=== PATIENT | female | born 1995 | race Caucasian/White ===

== ENCOUNTER 2018-05-11 09:39 | Emergency (ER) | payer OTHER ==
[~2018-05-11] VITALS: Ht 152.4 cm; Wt 68.5 kg
[2018-05-11 09:50] VITALS: BP 122/57; Ht 152.4 cm; Wt 68.5 kg
== END 2018-05-11 12:22 | disposition home or self-care (01) ==
LOC: ED 09:39
DX: J40 Bronchitis, not specified as acute or chronic (principal)
CPT/HCPCS: Q0092

== ENCOUNTER 2018-07-03 15:37 | Emergency (ER) | payer OTHER ==
[~2018-07-03] VITALS: Ht 142.2 cm; Wt 68.0 kg
[2018-07-03 17:12] VITALS: Ht 142.2 cm; Wt 68.0 kg
[2018-07-03 18:56] VITALS: BP 115/80
== END 2018-07-03 19:56 | disposition home or self-care (01) ==
LOC: ED 15:37
DX: J06.9 Acute upper respiratory infection, unspecified (principal); Q90.9 Down syndrome, unspecified

== ENCOUNTER 2018-08-16 15:27 | Emergency (ER) | payer OTHER ==
[~2018-08-16] VITALS: Ht 157.5 cm; Wt 71.2 kg
[2018-08-16 15:32] VITALS: Ht 157.5 cm; Wt 71.2 kg
[2018-08-16 16:40] VITALS: BP 129/87
== END 2018-08-16 16:40 | disposition home or self-care (01) ==
LOC: ED 15:27
DX: J06.9 Acute upper respiratory infection, unspecified (principal)

== ENCOUNTER 2018-08-29 23:40 | Inpatient (IN) | payer OTHER ==
[~2018-08-29] VITALS: Ht 162.6 cm; Wt 71.2 kg
[2018-08-29 23:45] VITALS: Ht 162.6 cm; Wt 71.2 kg
--- NOTE | 2018-08-29 23:49 | NUR ---
EKG IN PROGRESS
[2018-08-30 00:44] LABS: BASOPHIL % 1.1 % (0-2); PLATELET COUNT 325 x10^3mcL (130-400); RED CELL DISTRIBUTION WIDTH 13.8 % (11.5-14.5)
--- NOTE | 2018-08-30 00:46 | NUR ---
PT BIB PARENTS FOR C/O CP AND COUGH. PT HAS HX OF DOWN SYNDROME. PT RESP E/U, NO DISTRESS NOTED.
[2018-08-30 00:58] LABS: CALCIUM 9.2 mg/dL (8.5-10.1); CHLORIDE SERUM 103 mmol/L (98-107); CREATININE SERUM 0.8 mg/dL (0.6-1.0); GFR1 > 60 mL/min; GLUCOSE SERUM 120 mg/dL (74-106); POTASSIUM SERUM 4.1 mmol/L (3.5-5.1); SODIUM SERUM 141 mmol/L (136-145)
[2018-08-30 01:03] LABS: ALKALINE PHOSPHATASE 108 U/L (46-116); ALT/SGPT 36 U/L (14-59); AST/SGOT 32 U/L (15-37); BILIRUBIN TOTAL 0.4 mg/dL (0.20-1.00); LIPASE 99 IU/L (73-393)
--- NOTE | 2018-08-30 01:37 | NUR ---
REPORT GIVEN TO HUNG DAVIS TO ASSUME CARE.
--- NOTE | 2018-08-30 01:41 | NUR ---
RECIEVED REPORT FROM HUNG ELY FOR CARE OF PATIENT. PROVIDED PATIENT WARM BLANKETS. NO S/S OF DISTRESS NOTED.
[2018-08-30 03:17] LABS: MAGNESIUM 2.1 mg/dL (1.8-2.4); PHOSPHOROUS 4.2 mg/dL (2.5-4.9)
--- NOTE | 2018-08-30 03:19 | NUR ---
PT SITTING UP IN BED, RESPIRATION EVEN AND UNLABORED. PT REPORTS H/A, TYLENOL GIVEN PER DR. CHAUDHARI.
[2018-08-30 03:22] LABS: CHOLESTEROL/HDL RATIO 5.7
[2018-08-30 03:26] LABS: T3 TOTAL 1.32 ng/mL
[2018-08-30 03:43] LABS: FREE T4 0.68 ng/dL (0.76-1.46)
[2018-08-30 03:44] LABS: FREE THYROXINE INDEX 1.3 ug/dL (1.4-4.5)
--- NOTE | 2018-08-30 04:34 | NUR ---
PT LAYING IN BED, NO S/S OF DISTRESS NOTED. PT REPORTS TO BE "SLEEPY". PT ASSISTED TO REPOSITION FOR COMFORT, EXTRA BLANKET PROVIDED, LIGHTS TURNED DOWN.
--- NOTE | 2018-08-30 05:25 | NUR ---
PT AMBULATED TO AND FROM BATHROOM WITH STEADY GAIT. FATHER ASSISTED PT INSIDE BATHROOM. FATHER AND PT INSTRUCTED HOW TO PROVIDE CLEAN CATCH URINE SAMPLE.
[2018-08-30 05:35] LABS: microscopic required? NO
[2018-08-30 05:58] LABS: UA SPECIFIC GRAVITY 1.025 (1.005-1.035); urine erythrocyte NEGATIVE (NEGATIVE)
--- NOTE | 2018-08-30 06:08 | NUR ---
PT SITTING UP IN BED, NO S/S OF DISTRESS NOTED. FATHER TALKING WITH PT AT BEDSIDE.
--- NOTE | 2018-08-30 07:07 | NUR ---
REPORT RECEIVED FROM HUNG RIGGINS TO ASSUME CARE OF PT. PT SLEEPING, CHEST RISE AND FALL NOTED, NO ACUTE DISTRESS NOTED.
--- NOTE | 2018-08-30 07:16 | NUR ---
REPORT GIVEN TO HUNG BERRY TO ASSUME CARE OF PT.
--- NOTE | 2018-08-30 08:10 | NUR ---
REPORT GIVEN TO HUNG DUBOSE ON TELE UNIT TO ASSUME CARE OF PT.
[2018-08-30 08:37] LABS: BASOPHIL % 1.2 % (0-2); PLATELET COUNT 299 x10^3mcL (130-400); RED CELL DISTRIBUTION WIDTH 13.9 % (11.5-14.5)
--- NOTE | 2018-08-30 08:42 | NUR ---
REPORT TAKEN FROM ER NURSE BY PHONE, PT ARRIVED TO UNIT AT THIS TIME IN NAD DISTRESS, WILL COMPLETE ASSESSMENT IN CHART.
[2018-08-30 09:56] LABS: CALCIUM 9.3 mg/dL (8.5-10.1); CHLORIDE SERUM 103 mmol/L (98-107); CREATININE SERUM 0.9 mg/dL (0.6-1.0); GFR1 > 60 mL/min; GLUCOSE SERUM 176 mg/dL (74-106); POTASSIUM SERUM 3.8 mmol/L (3.5-5.1); SODIUM SERUM 138 mmol/L (136-145)
[2018-08-30 10:07] VITALS: BP 118/63
--- NOTE | 2018-08-30 10:18 | NUR ---
PT RESTING COMFORTABLY AT THIS TIME, IN NAD, WILL CONTINUE TO MONITOR.
[2018-08-30 16:55] VITALS: BP 126/69
[2018-08-30] MEDS ORDERED: LEVOTHYROXIN0.025 M2 (17:25)
[2018-08-30] MEDS ORDERED: NORVASC2.5 MG (17:26)
[2018-08-30] MEDS ORDERED: HCTZ/LISINOPRIL1 TA2 (17:27)
[2018-08-30 17:28] VITALS: BP 126/69
--- NOTE | 2018-08-30 17:55 | NUR ---
PER PROVIDER ORDER, PT DC'D HOME IN THE CARE OF FAMILY WHO ARE AT THE BEDSIDE. PT'S FATHER SIGNED DISCHARGE PAPER WORK [employer]. PT AND FAMILY ADVISED TO CALL THE NURSE WHEN THEY ARE READY TO GO. TELE # [id number] DC'D AND TAKEN BACK TO [place] [facility]. WAIST CUTTER WILL TAKE PT TO DC OFFICE/FRONT OF HOSPITAL WHEN PT IS READY TO GO.
== END 2018-08-30 18:17 | disposition home or self-care (01) | DRG 205 ==
LOC: ED 23:40 → DU 08-30 01:42
PROVIDERS: Emergency Medicine; ADMIT Family Medicine
DX: M94.0 Chondrocostal junction syndrome [Tietze] (principal); N17.0 Acute kidney failure with tubular necrosis; J06.9 Acute upper respiratory infection, unspecified; Q90.9 Down syndrome, unspecified; E78.5 Hyperlipidemia, unspecified; Z68.26 Body mass index [BMI] 26.0-26.9, adult
CPT/HCPCS: 84439; 87804; J7620

== ENCOUNTER 2018-09-13 20:55 | Emergency (ER) | payer OTHER ==
[~2018-09-13] VITALS: Ht 160 cm; Wt 69.4 kg
[~2018-09-13 20:55] MED LIST: HCTZ/LISINOPRIL1 TA2; LEVOTHYROXIN0.025 M2; NORVASC2.5 MG
[2018-09-13 20:59] VITALS: Ht 160 cm; Wt 69.4 kg
[2018-09-13 22:26] VITALS: BP 117/76
== END 2018-09-13 22:26 | disposition home or self-care (01) ==
LOC: ED 20:55
DX: R05 Cough (principal); R07.89 Other chest pain

== ENCOUNTER 2018-10-09 19:45 | Emergency (ER) | payer OTHER ==
[~2018-10-09] VITALS: Ht 154.9 cm; Wt 70.3 kg
[2018-10-09 20:18] VITALS: Ht 154.9 cm; Wt 70.3 kg
[2018-10-09 22:14] VITALS: BP 130/64
== END 2018-10-09 22:14 | disposition home or self-care (01) ==
LOC: ED 19:45
DX: J20.9 Acute bronchitis, unspecified (principal); Q90.9 Down syndrome, unspecified; Z98.890 Other specified postprocedural states

== ENCOUNTER 2019-02-19 13:53 | Emergency (ER) | payer OTHER, MEDICAID ==
[~2019-02-19] VITALS: Ht 137.2 cm; Wt 71.8 kg
[2019-02-19 13:59] VITALS: Ht 137.2 cm; Wt 71.8 kg
[2019-02-19 15:01] VITALS: BP 120/65
== END 2019-02-19 15:01 | disposition home or self-care (01) ==
LOC: ED 13:53
DX: J40 Bronchitis, not specified as acute or chronic (principal)

== ENCOUNTER 2019-04-10 15:39 | Emergency (ER) | payer OTHER, MEDICAID ==
[~2019-04-10] VITALS: Ht 162.6 cm; Wt 72.6 kg
[2019-04-10 15:42] VITALS: BP 100/55; Ht 162.6 cm; Wt 72.6 kg
== END 2019-04-10 16:53 | disposition home or self-care (01) ==
LOC: ED 15:39
DX: R05 Cough (principal); R07.89 Other chest pain; Z93.3 Colostomy status

== ENCOUNTER 2019-06-14 09:12 | Emergency (ER) | payer OTHER, MEDICAID ==
[~2019-06-14] VITALS: Ht 160 cm; Wt 70.4 kg
[2019-06-14 13:48] VITALS: BP 139/93
== END 2019-06-14 13:50 | disposition home or self-care (01) ==
LOC: ED 09:12
DX: J06.9 Acute upper respiratory infection, unspecified (principal)
CPT/HCPCS: Q0092

== ENCOUNTER 2019-09-07 12:15 | Emergency (ER) | payer OTHER, MEDICAID ==
[~2019-09-07] VITALS: Ht 162.6 cm; Wt 63.5 kg
[2019-09-07 12:39] VITALS: Ht 162.6 cm; Wt 63.5 kg
[2019-09-07 13:45] VITALS: BP 107/54
== END 2019-09-07 13:47 | disposition home or self-care (01) ==
LOC: ED 12:15
DX: R05 Cough (principal)
CPT/HCPCS: Q0092